=== PATIENT | male | born 1995 | race Caucasian/White ===

== ENCOUNTER 2017-03-24 02:11 | Emergency (ER) | payer OTHER ==
[~2017-03-24] VITALS: Ht 172.7 cm; Wt 107.3 kg
[2017-03-24 02:16] VITALS: Ht 172.7 cm; Wt 107.3 kg
[2017-03-24 03:48] VITALS: BP 143/93
== END 2017-03-24 03:48 | disposition home or self-care (01) ==
LOC: ED 02:11
DX: J20.9 Acute bronchitis, unspecified (principal)
CPT/HCPCS: 87804; J1885; Q0092

== ENCOUNTER 2017-10-26 04:33 | Emergency (ER) | payer OTHER ==
[~2017-10-26] VITALS: Ht 177.8 cm; Wt 108.0 kg
[2017-10-26 04:38] VITALS: Ht 177.8 cm; Wt 108.0 kg
[2017-10-26 08:07] VITALS: BP 137/68
== END 2017-10-26 08:07 | disposition home or self-care (01) ==
LOC: ED 04:33
DX: R51 Headache (principal)
CPT/HCPCS: J1885; J2270; J2765; J7030